=== PATIENT | male | born 1960 | race African-American/Black ===

== ENCOUNTER 2019-01-31 09:45 | Inpatient (IN) | payer OTHER ==
[~2019-01-31] VITALS: Ht 182.9 cm; Wt 95.3 kg
[2019-01-31] MEDS ORDERED: SODIUM CHLORIDE 0.9% 1,000 ML IV ONE (10:27)
[2019-01-31] MEDS ORDERED: KETOROLAC 30MG/ML VIAL IV STA (10:27)
[2019-01-31] MEDS ORDERED: MORPHINE SULFATE 4 MG/ML CPJ (NOT FOR IM USE) IV STA (10:27)
[2019-01-31] MEDS ORDERED: ONDANSETRON HCL 4MG/2ML INJ IV STA (10:27)
[2019-01-31 11:42] LABS: BASOPHILS % 0.4 % (0.0-2.0); HEMATOCRIT. 41.9 % (42.0-52.0); HEMOGLOBIN. 13.9 g/dL (14.0-18.0); LYMPHOCYTES % 13.3 % (20.0-50.0); MEAN CORPUSCULAR HEMOGLOBIN 30.8 pg (28.0-32.0); MEAN PLATELET VOLUME 7.8 fl (7.4-10.4); MONOCYTES % 9.7 % (2.0-8.0); NEUTROPHILS % 73.6 % (40.0-76.0); PLATELET 225 x1000/uL (130-400); RED BLOOD CELL COUNT 4.51 mill/uL (4.7-6.1); RED CELL DISTRIBUTION WIDTH 13.9 % (11.6-14.6)
[2019-01-31 11:48] LABS: CHLORIDE 92 mEq/L (98-107)
[2019-01-31 11:51] LABS: INR 1.1; PROTHROMBIN TIME 11.4 sec (9.1-11.1)
[2019-01-31 11:52] LABS: ETHANOL BLOOD < 10 mg/dL
[2019-01-31 13:07] LABS: CLARITY URINE CLEAR (CLEAR); COLOR URINE YELLOW (YELLOW); KETONES URINE NEGATIVE (NEGATIVE); LEUKOCYTE ESTERASE URINE NEGATIVE (NEGATIVE); NITRITE URINE NEGATIVE (NEGATIVE); OCCULT BLOOD URINE 2+ (NEGATIVE); PROTEIN URINE TRACE (NEGATIVE); UROBILINOGEN URINE 0.2 E.U./dL (0.2-1.0)
[2019-01-31 13:38] LABS: *AMPHETAMINES SCREEN URINE NEGATIVE (NEGATIVE); *BARBITURATES SCREEN URINE NEGATIVE (NEGATIVE); CANNABINOID URINE SCREEN NEGATIVE (NEGATIVE); METHADONE URINE SCREEN NEGATIVE (NEGATIVE); OPIATES URINE SCREEN NEGATIVE (NEGATIVE); PHENCYCLIDINE URINE SCREEN NEGATIVE (NEGATIVE)
[2019-01-31 13:39] LABS: *BENZODIAZEPINES SCREEN URINE NEGATIVE (NEGATIVE); *COCAINE SCREEN URINE PRESUMTIVE POSITIVE (NEGATIVE)
[2019-01-31 17:00] VITALS: BP 146/95
[2019-01-31 18:14] LABS: HEPATITIS B SURFACE ANTIGEN NEGATIVE
[2019-01-31] MEDS ORDERED: GUAIFENESIN 200MG/10ML SUGAR FREE UDC PO PRN (18:15)
[2019-01-31] MEDS ORDERED: ONDANSETRON HCL 4MG/2ML INJ IV PRN (18:15)
[2019-01-31] MEDS ORDERED: DOCUSATE SODIUM 100MG CAPSULE PO PRN (18:15)
[2019-01-31] MEDS ORDERED: CLONIDINE 0.1MG TABLET PO PRN (18:15)
[2019-01-31] MEDS ORDERED: MAGNESIUM/ALUMINUM HYDROXIDE/SIMETHICONE 30ML UDC PO PRN (18:15)
[2019-01-31] MEDS ORDERED: ACETAMINOPHEN 650MG/20.3ML UDC GT PRN (18:15)
[2019-01-31] MEDS ORDERED: ACETAMINOPHEN 325MG TABLET PO PRN (18:15)
[2019-01-31] MEDS ORDERED: IPRATROPIUM/ALBUTEROL 0.5-3(2.5)MG/3ML NEB INH PRN (18:15)
[2019-01-31] MEDS ORDERED: ACETAMINOPHEN 650MG SUPP PR PRN (18:15)
[2019-01-31] MEDS ORDERED: SODIUM CHL 0.45% + KCL 20MEQ/L 1,000 ML IV SCH (18:30)
[2019-01-31] MEDS: FINASTERIDE 5MG TABLET PO SCH (19:01)
[2019-01-31] MEDS: TAMSULOSIN HCL 0.4MG SR CAPSULE PO SCH (19:02)
[2019-01-31 20:00] VITALS: BP 140/80
[2019-01-31] MEDS: SODIUM CHLORIDE 0.9% INJ 3ML FLUSH IVF SCH (21:26)
[2019-02-01] VITALS: BP 119/83
[2019-02-01 04:00] VITALS: BP 146/82
[2019-02-01 06:52] LABS: EOSINOPHILS % 12.8 % (0.0-5.0); HEMATOCRIT. 40.3 % (42.0-52.0); HEMOGLOBIN. 13.6 g/dL (14.0-18.0); LYMPHOCYTES % 41.7 % (20.0-50.0); MEAN CORPUSCULAR HEMOGLOBIN 31.2 pg (28.0-32.0); MEAN CORPUSCULAR VOLUME 92.1 fL (80.0-94.0); MEAN PLATELET VOLUME 8.1 fl (7.4-10.4); NEUTROPHILS % 34.5 % (40.0-76.0); PLATELET 206 x1000/uL (130-400); RED BLOOD CELL COUNT 4.38 mill/uL (4.7-6.1); RED CELL DISTRIBUTION WIDTH 13.7 % (11.6-14.6)
[2019-02-01 08:00] VITALS: BP 130/69
[2019-02-01] MEDS: TAMSULOSIN HCL 0.4MG SR CAPSULE PO SCH (08:00)
[2019-02-01] MEDS: FINASTERIDE 5MG TABLET PO SCH (08:00)
[2019-02-01 08:49] LABS: CHLORIDE 105 mEq/L (98-107)
[2019-02-01 09:15] LABS: PHOSPHORUS 3.5 mg/dL (2.5-4.9)
[2019-02-01 09:16] LABS: LDL CHOLESTEROL 152 mg/dL (5-100)
[2019-02-01 09:19] LABS: HDL CHOLESTEROL 37 mg/dL (40-59)
[2019-02-01 12:00] VITALS: BP 116/89
[2019-02-01] MEDS: SODIUM CHLORIDE 0.45% 1,000 ML IV SCH (12:53)
[2019-02-01] MEDS: SODIUM CHLORIDE 0.9% INJ 3ML FLUSH IVF SCH ×2 (14:00→22:00)
[2019-02-01 16:00] VITALS: BP 130/90
[2019-02-01 20:00] VITALS: BP 136/85
[2019-02-02] VITALS: BP 161/85
[2019-02-02 04:00] VITALS: BP 135/85
[2019-02-02] MEDS: SODIUM CHLORIDE 0.45% 1,000 ML IV SCH ×2 (04:55→08:19)
[2019-02-02] MEDS: SODIUM CHLORIDE 0.9% INJ 3ML FLUSH IVF SCH (05:05)
[2019-02-02 06:49] LABS: BASOPHILS % 1.2 % (0.0-2.0); EOSINOPHILS % 11.4 % (0.0-5.0); HEMATOCRIT. 36.9 % (42.0-52.0); HEMOGLOBIN. 12.4 g/dL (14.0-18.0); LYMPHOCYTES % 41.5 % (20.0-50.0); MEAN CORPUSCULAR HEMOGLOBIN 30.9 pg (28.0-32.0); MEAN CORPUSCULAR VOLUME 91.9 fL (80.0-94.0); MEAN PLATELET VOLUME 7.7 fl (7.4-10.4); MONOCYTES % 9.2 % (2.0-8.0); NEUTROPHILS % 36.7 % (40.0-76.0); PLATELET 209 x1000/uL (130-400); RED BLOOD CELL COUNT 4.02 mill/uL (4.7-6.1); RED CELL DISTRIBUTION WIDTH 13.7 % (11.6-14.6)
[2019-02-02 07:06] LABS: CHLORIDE 104 mEq/L (98-107)
[2019-02-02 07:15] LABS: PHOSPHORUS 3.3 mg/dL (2.5-4.9)
[2019-02-02 08:00] VITALS: BP 156/91
[2019-02-02] MEDS: FINASTERIDE 5MG TABLET PO SCH (08:19)
[2019-02-02] MEDS: TAMSULOSIN HCL 0.4MG SR CAPSULE PO SCH (08:19)
[2019-02-02 10:38] VITALS: BP 156/91
[2019-02-02] MEDS ORDERED: MAGNESIUM OXIDE 400MG TABLET PO SCH (11:30)
[2019-02-02 12:00] VITALS: BP 153/92
== END 2019-02-02 12:20 | disposition home or self-care (01) | DRG 683 ==
LOC: ER 11:52 → 6EST 12:21 → ENRESERV 16:02
PROVIDERS: ADMIT Family Medicine; ATTEND Family Medicine
DX: N17.9 Acute kidney failure, unspecified (principal); E87.1 Hypo-osmolality and hyponatremia; N13.8 Other obstructive and reflux uropathy; N13.6 Pyonephrosis; K40.90 Unilateral inguinal hernia, without obstruction or gangrene, not specified as recurrent; I10 Essential (primary) hypertension; N32.0 Bladder-neck obstruction; R74.0 Nonspecific elevation of levels of transaminase and lactic acid dehydrogenase [LDH]; F14.10 Cocaine abuse, uncomplicated; F10.20 Alcohol dependence, uncomplicated; N40.0 Benign prostatic hyperplasia without lower urinary tract symptoms; M47.9 Spondylosis, unspecified; Z80.1 Family history of malignant neoplasm of trachea, bronchus and lung; Z82.3 Family history of stroke; N40.1 Benign prostatic hyperplasia with lower urinary tract symptoms
CPT/HCPCS: 36415; 74176; 80048; 80061; 80305; 80320; 83735; 84100; 84153; 84484; 86803; 87340; 93005; 96374; 96375; 99285; J1885; J2270; J2405; J3480; J7030; G0103; G0480

== ENCOUNTER 2019-02-16 09:17 | Emergency (ER) | payer OTHER ==
[~2019-02-16] VITALS: Ht 182.9 cm; Wt 93.0 kg
[2019-02-16 10:33] VITALS: BP 182/89
== END 2019-02-16 10:33 | disposition home or self-care (01) ==
LOC: ER 09:17
DX: N40.0 Benign prostatic hyperplasia without lower urinary tract symptoms (principal); F10.20 Alcohol dependence, uncomplicated; Y90.0 Blood alcohol level of less than 20 mg/100 ml; Z46.6 Encounter for fitting and adjustment of urinary device
CPT/HCPCS: 99281

== ENCOUNTER 2024-12-17 08:53 | Emergency (ER) | payer BC, OTHER ==
[~2024-12-17] VITALS: Ht 182.9 cm; Wt 96.0 kg
[2024-12-17 09:00] VITALS: BP 131/91; RESP 12; TEMP 98.8; O2SAT 95
[2024-12-17 09:03] VITALS: PULSE 65; O2SAT 98
[2024-12-17 09:50] LABS: BASOPHILS % 0.1 % (0.0-2.0); HEMATOCRIT. 43.8 % (42.0-52.0); HEMOGLOBIN. 14.6 g/dL (14.0-18.0); LYMPHOCYTES % 9.2 % (20.0-50.0); MEAN CORPUSCULAR HEMOGLOBIN 30.2 pg (28.0-32.0); MEAN CORPUSCULAR HGB CONC 33.3 g/dL (31.0-37.0); MEAN CORPUSCULAR VOLUME 90.7 fL (80.0-94.0); MEAN PLATELET VOLUME 8.1 fl (7.4-10.4); MONOCYTES % 10.4 % (2.0-8.0); NEUTROPHILS % 80.3 % (40.0-76.0); PLATELET 225 x1000/uL (130-400); RED BLOOD CELL COUNT 4.83 mill/uL (4.7-6.1); RED CELL DISTRIBUTION WIDTH 13.7 % (11.6-14.6); WHITE BLOOD COUNT 4.9 x1000/uL (4.5-11.0)
[2024-12-17 09:51] LABS: CHLORIDE 97 mEq/L (98-107); POTASSIUM 3.6 mEq/L (3.5-5.1); SODIUM 133 mEq/L (136-145)
[2024-12-17 09:52] LABS: CALCIUM 9.1 mg/dL (8.7-10.4); CARBON DIOXIDE 26 mEq/L (21-32)
[2024-12-17 09:57] LABS: CREATININE 1.1 mg/dL (0.6-1.3); GLUCOSE 133 mg/dL (70-105); UREA NITROGEN BLOOD 17 mg/dL (9-23)
[2024-12-17 09:58] LABS: TROPONIN I HIGH SENSITIVITY 11 ng/L (3.0-53)
== END 2024-12-17 11:05 | disposition home or self-care (01) ==
LOC: ER 09:02
DX: B34.9 Viral infection, unspecified (principal); R42 Dizziness and giddiness; F10.90 Alcohol use, unspecified, uncomplicated; Y90.9 Presence of alcohol in blood, level not specified
CPT/HCPCS: 36415; 80048; 84484; 85025; 93005; 99284